=== PATIENT | female | born 1980 | race Caucasian/White ===

== ENCOUNTER 2017-07-24 20:36 | Emergency (ER) | payer MEDICAID ==
[2017-07-24 23:11] LABS: ADD MAN DIFF? NO
[2017-07-24 23:16] LABS: BASOPHILS % 0.5 % (0.0-2.0); EOSINOPHILS # 0.2 10^3/ul (0.0-0.5); EOSINOPHILS % 2.1 % (0.0-7.0); HEMATOCRIT 35.6 % (37.0-47.0); HEMOGLOBIN 12.4 g/dl (12.0-16.0); LYMPHOCYTES # 2.4 10^3/ul (0.8-2.9); MEAN CORPUSCULAR HEMOGLOBIN 30.5 pg (29.0-33.0); MEAN CORPUSCULAR HGB CONC 34.8 g/dl (32.0-37.0); MEAN CORPUSCULAR VOLUME 87.7 fl (82.0-101.0); MEAN PLATELET VOLUME 10.3 fl (7.4-10.4); MONOCYTE # 0.5 10^3/ul (0.3-0.9); MONOCYTES % 6.6 % (0.0-11.0); NEUTROPHIL # 4.2 10^3/ul (1.6-7.5); NEUTROPHILS % 57.5 % (39.0-77.0); PLATELET COUNT 240 10^3/UL (140-415); RED BLOOD COUNT 4.06 10^6/ul (4.20-5.40); RED CELL DISTRIBUTION WIDTH 12.5 % (11.5-14.5)
[2017-07-24 23:16] LABS: WHITE BLOOD COUNT 7.3 10^3/ul (4.8-10.8)
[2017-07-24 23:21] LABS: ADD UMIC YES; UR ASCORBIC ACID NEGATIVE (NEGATIVE); UR BILIRUBIN (Dip) NEGATIVE (NEGATIVE); UR BLOOD (Dip) 2+ mg/dL (NEGATIVE); UR CLARITY CLEAR (CLEAR); UR COLOR YELLOW (YELLOW); UR GLUCOSE (Dip) NEGATIVE (NEGATIVE); UR KETONES (Dip) NEGATIVE (NEGATIVE); UR LEUKOCYTE ESTERASE (Dip) NEGATIVE Leu/ul (NEGATIVE); UR NITRITE (Dip) NEGATIVE (NEGATIVE); UR RBC 4 /HPF (0-5); UR SPECIFIC GRAVITY (Dip) 1.025 (1.003-1.030); UR TOTAL PROTEIN (Dip) NEGATIVE (NEGATIVE); UR UROBILINOGEN (Dip) NEGATIVE (NEGATIVE); UR WBC 1 /HPF (0-5)
[2017-07-24 23:41] LABS: ALANINE AMINOTRANSFERASE 27 IU/L (13-69); ALBUMIN/GLOBULIN RATIO 1.37; ALKALINE PHOSPHATASE 72 IU/L (42-121); ANION GAP 13 (8-16); ASPARTATE AMINO TRANSFERASE 20 IU/L (15-46); BILIRUBIN,INDIRECT 0.2 mg/dl (0-1.1); BILIRUBIN,TOTAL 0.2 mg/dl (0.2-1.3); BLOOD UREA NITROGEN 19 mg/dl (7-20); CALCIUM 9.2 mg/dl (8.4-10.2); CARBON DIOXIDE 27 mmol/L (21-31); CHLORIDE 108 mmol/L (97-110); CREATININE 0.67 mg/dl (0.44-1.00); GLUCOSE 95 mg/dl (70-220); LIPASE 119 U/L (23-300); SODIUM 144 mmol/L (135-144); TOTAL PROTEIN 6.9 g/dl (6.1-8.1)
[2017-07-24] MEDS: IOHEXOL 300MG/ML 150 ML BTL (23:59)
[2017-07-24] MEDS: SOD CHLORIDE 0.9% 100 ML (23:59)
== END 2017-07-25 03:11 | disposition home or self-care (01) ==
LOC: FTE 07-25 03:11
DX: N83.201 Unspecified ovarian cyst, right side (principal); D25.9 Leiomyoma of uterus, unspecified; R10.2 Pelvic and perineal pain
CPT/HCPCS: 36415; 74177; 76830; 76856; 80053; 81001; 81025; 83690; 85025; 99285-25

== ENCOUNTER 2018-03-10 12:53 | Emergency (ER) | payer MEDICAID | END 2018-03-10 15:26 | disposition home or self-care (01) | LOC: FTE 12:53 | DX: F41.9 Anxiety disorder, unspecified (principal); H61.22 Impacted cerumen, left ear; M54.2 Cervicalgia; R07.9 Chest pain, unspecified | CPT/HCPCS: 93005; 99283-25 ==

== ENCOUNTER 2018-06-08 05:58 | Emergency (ER) | payer MEDICAID ==
[2018-06-08] MEDS: SOD CHLORIDE 0.9% 1,000 ML IV (07:19)
[2018-06-08 07:22] LABS: URINE BLOOD (Dip) POC Trace-intact (NEGATIVE); URINE GLUCOSE (Dip) POC Negative (NEGATIVE); URINE KETONES (Dip) POC Negative (NEGATIVE); URINE LEUKOCYTE EST (Dip) POC Negative (NEGATIVE); URINE NITRITE (Dip) POC Negative (NEGATIVE); URINE TOTAL PROTEIN POC Trace (NEGATIVE)
[2018-06-08] MEDS: ONDANSETRON 4 MG INJ IV (07:51)
[2018-06-08] MEDS: KETOROLAC 30 MG INJ IV (07:51)
== END 2018-06-08 08:57 | disposition home or self-care (01) ==
LOC: FTE 05:58
DX: R51 Headache (principal); R11.2 Nausea with vomiting, unspecified
CPT/HCPCS: 81003; 84703; 96374; 96375; 99284-25

== ENCOUNTER 2018-10-29 19:17 | Emergency (ER) | payer MEDICAID ==
[2018-10-29] MEDS: IBUPROFEN 600 MG TAB PO (21:20)
== END 2018-10-29 22:57 | disposition home or self-care (01) ==
LOC: FTE 19:17
DX: R51 Headache (principal)
CPT/HCPCS: 99282; Z7502